=== PATIENT | female | born 2000 | race Caucasian/White ===

== ENCOUNTER 2021-01-14 17:10 | Emergency (ER) | payer OTHER, SELFPAY ==
[2021-01-14 17:44] LABS: Bilirubin Negative (Negative); Blood, Urine Trace (Negative); Clarity Slightly Cloudy (Clear); Glucose, Urine (Dipstick) Negative (Negative); Ketone, Urine Negative (Negative); Leukocyte Small (Negative); Nitrite Negative (Negative); Protein, Urine (Dipstick) Negative (Neg-Trace); Specific Gravity, Urine 1.025 (1.005-1.030); Urobilinogen 0.2 mg/dL (Less than 2)
[2021-01-14 17:51] LABS: Bacteria/HPF 1+ HPF (None Seen); RBC/HPF 0-3 HPF (0-3); Transitional Epithelial 0-3 HPF (None Seen)
== END 2021-01-14 18:00 | disposition home or self-care (01) ==
LOC: BURERS 17:10
DX: S63.501A Unspecified sprain of right wrist, initial encounter (principal); G56.01 Carpal tunnel syndrome, right upper limb; X50.0XXA Overexertion from strenuous movement or load, initial encounter
CPT/HCPCS: 81003; 81015; 99283

== ENCOUNTER 2021-01-15 15:36 | Emergency (ER) | payer OTHER | END 2021-01-15 16:33 | disposition home or self-care (01) | LOC: BURERS 15:36 | DX: M54.5 Low back pain (principal); F17.210 Nicotine dependence, cigarettes, uncomplicated; X50.0XXA Overexertion from strenuous movement or load, initial encounter | CPT/HCPCS: 99281 ==